=== PATIENT | female | born 1960 | race African-American/Black ===

== ENCOUNTER → 2016-10-17 | Outpatient (CLI) | payer BC | LOC: MC.RAD 10-07 10:00 | DX: Z12.31 Encounter for screening mammogram for malignant neoplasm of breast (principal); D24.2 Benign neoplasm of left breast; D24.1 Benign neoplasm of right breast ==

== ENCOUNTER 2017-11-28 10:28 | Emergency (ER) | payer BC ==
[~2017-11-28] VITALS: Ht 160 cm; Wt 95.9 kg
[2017-11-28 10:29] VITALS: TEMP 98.1
[2017-11-28 11:07] LABS: BASO # 0.1 (0.0-0.2); BASO % 2.4 % (0.0-2.0); EOS # 0.1 (0.0-0.7); EOS % 2.1 % (0-4.0); GRAN # 0.9 (1.4-6.5); GRAN % 27.6 % (42.2-75.2); HEMOGLOBIN 12.6 g/dl (12.5-16.0); LYMPH % 60.4 % (20.0-51.0); MEAN CELL VOLUME 75 fl (80.0-100.0); MEAN CORPUSCULAR HEMOGLOBIN 24 pg (27.0-31.0); MEAN CORPUSCULAR HGB CONC 32 g/dl (33.0-37.0); MEAN PLATELET VOLUME 9.8 fl (7.4-10.4); MONO # 0.3 (0.1-0.6); MONO % 7.5 % (1.7-9.3); PLATELET COUNT 279 K/mm3 (130-400); RED BLOOD COUNT 5.31 M/mm3 (4.10-5.30); REDCELL DISTRIBUTION WIDTH-CV 14.8 % (11.5-14.5)
[2017-11-28 11:21] LABS: ALANINE AMINOTRANSFERASE 45 U/L (9-52); ALBUMIN 4.1 gm/dL (3.5-5.0); ALKALINE PHOSPHATASE 55 U/L (50-136); ANION GAP 10 mmol/L (7-16); AST,SGOT 38 U/L (15-37); BILIRUBIN,TOTAL 0.5 mg/dL (0.0-1.0); BLOOD UREA NITROGEN 12 mg/dL (7-17); CALCIUM 9.6 mg/dL (8.4-10.2); CARBON DIOXIDE 27 mmol/L (22-30); CHLORIDE 105 mmol/L (98-107); CREATININE, serum 0.91 mg/dL (0.52-1.25); GLUCOSE 92 mg/dL (74-106); LIPASE 32 U/L (23-300); POTASSIUM 4.3 mmol/L (3.4-5.0); SODIUM 142 mmol/L (137-145); TOTAL PROTEIN 8.3 gm/dL (6.4-8.2)
[2017-11-28 11:32] LABS: TROPONIN-I < 0.012 ng/mL (0.000-0.034)
[2017-11-28 12:10] LABS: THYROID STIMULATING HORMONE 3.25 uIU/mL (0.465-4.680)
[2017-11-28 15:00] VITALS: BP 131/76; PULSE 58
[2017-11-28] MEDS ORDERED: PROTONIX 40MG T40 MG PO (15:51)
== END 2017-11-28 16:25 | disposition home or self-care (01) ==
LOC: COL.ER 10:28
PROVIDERS: Emergency Medicine
DX: R07.89 Other chest pain (principal); E78.5 Hyperlipidemia, unspecified; Z90.710 Acquired absence of both cervix and uterus

== ENCOUNTER → 2017-11-28 | Outpatient (CLI) | payer BC ==
[~2017-11-28] MED LIST: PROTONIX 40MG T40 MG PO
== END ==
LOC: MC.RAD 08:59
DX: Z12.31 Encounter for screening mammogram for malignant neoplasm of breast (principal); N63.21 Unspecified lump in the left breast, upper outer quadrant

== ENCOUNTER → 2017-12-05 | Outpatient (CLI) | payer BC | LOC: MC.RAD 14:03 | DX: N63.21 Unspecified lump in the left breast, upper outer quadrant (principal) ==

== ENCOUNTER → 2018-12-22 | Outpatient (CLI) | payer BC | LOC: MC.RAD 09:40 | DX: Z12.31 Encounter for screening mammogram for malignant neoplasm of breast (principal); N63.21 Unspecified lump in the left breast, upper outer quadrant ==

== ENCOUNTER → 2019-07-02 | Outpatient (CLI) | payer SELFPAY | LOC: MC.RAD 10:28 | DX: N63.21 Unspecified lump in the left breast, upper outer quadrant (principal) | CPT/HCPCS: G0279 ==

== ENCOUNTER → 2021-08-22 | Outpatient (CLI) | payer SELFPAY | LOC: MC.RAD 08-17 11:15 | DX: Z12.31 Encounter for screening mammogram for malignant neoplasm of breast (principal) ==

== ENCOUNTER → 2023-10-29 | Outpatient (CLI) | payer MEDICARE ==
[~2023-10-29] MED LIST changes: +MACROBID 1100 MG/CAP PO; +NORCO 325 MG-51 TAB PO
== END ==
LOC: MC.RAD 09:54
DX: Z12.31 Encounter for screening mammogram for malignant neoplasm of breast (principal)